=== PATIENT | female | born 1935 | race Caucasian/White ===

== ENCOUNTER 2017-04-06 07:26 | Emergency (ER) | payer OTHER, BC ==
[~2017-04-06] VITALS: Ht 167.6 cm; Wt 57.6 kg
[~2017-04-06 07:26] MED LIST: ADVAIR 500/501 DISK IH; AMOX TR-K CLV1 EAC4 PO; AMOXICILLIN500 M1 PO; ANTACID CHEWAB1 EACH PO; ANTI-DIARRHEAL2 M2 PO; CALCITRIOL0.25 MCG PO; CARAFATE100 MG/ML PO; CLARITIN-D 121 EACH PO; DICYCLOMINE HCL20 MG PO; ERGOCALCIF50000 UNIT PO; FEOSOL325 MG PO; FLONASE16 G1 BOTH NARES; IRON325 M1 PO; KEFLEX250 MG PO; LEVOXYL100 MCG PO; LIPITOR10 MG PO; METOPROLOL TART25 MG PO; MUCINEX DM ER1 EACH PO; NORVASC10 MG PO; PERCOCET 5/31 TABLET PO; PRINIVIL5 MG PO; PROTONIX40 MG PO; SORE THROAT LO1 EAC3 MM; SPIRIVA RESPIMAT4 GM IH; TOPROL XL25 MG PO; TYLENOL REGULA325 MG PO; Tums,OsCal PO; ZEASORB-AF70 G1 TP; ZOFRAN4 MG PO
[2017-04-06 08:09] LABS: ADD MIUA? YES; BILIRUBIN NEGATIVE; BLOOD MODERATE; COLOR YELLOW ((YELLOW)); GLUCOSE (STRIP) NEGATIVE; KETONES NEGATIVE; LEUKOCYTES LARGE; NITRITE NEGATIVE; PROTEIN (STRIP) >=500; SPECIFIC GRAVITY 1.014 (1.000-1.030); UROBILINOGEN 0.2 MG/DL (0.2-1.0)
[2017-04-06 08:22] LABS: EOSINOPHIL (%) 0.9 % (0-5); EOSINOPHIL COUNT 0.1 K/uL (0-0.3); HEMATOCRIT 33.6 % (36.0-46.0); IMMATURE GRANULOCYTE COUNT 0.1 K/uL; INSTRUMENT ABS NEUTROPHIL CT 5.9 K/uL; LYMPHOCYTE COUNT 1.1 K/uL (1.0-2.8); MCH 25.4 PG (29.0-34.0); MCHC 31.3 G/DL (30.0-36.0); MCV 81.4 FL (83-99); MEAN PLAT.VOLUME 9.1 uM^3 (9.5-12.4); MONOCYTE COUNT 0.6 K/uL (0-0.8); NEUTROPHIL (%) 76.2 % (45-76); NEUTROPHIL COUNT 5.9 K/uL (1.8-6.4); PLATELET COUNT 294 K/uL (156-360); RBC DIS.WIDTH-CV 14.4 % (11.8-14.6); RBC DIS.WIDTH-SD 42.8 % (39-53); RED BLOOD COUNT 4.13 M/uL (3.80-5.20); WHITE BLOOD COUNT 7.7 K/uL (4.1-10.2)
[2017-04-06 08:36] LABS: CHLORIDE 104 mEq/L (99-109); POTASSIUM 3.5 mEq/L (3.7-5.4); SODIUM 141 mEq/L (136-147)
[2017-04-06 08:38] LABS: GLUCOSE 87 mg/dL (70-99)
[2017-04-06 08:40] LABS: ANION GAP 12 MEQ/L (2-14); TOTAL BILIRUBIN 0.5 mg/dL (0.0-1.0)
[2017-04-06 08:42] LABS: ALKALINE PHOSPHATASE 67 IU/L (3-129); GFR ESTIMATE (CALCULATED) 39 mL/min/
[2017-04-06 08:43] LABS: UREA NITROGEN (BUN) 13 mg/dL (9-23)
[2017-04-06 08:49] LABS: UCUL ADDED? YES; WHITE BLOOD CELLS TNTC /HPF (0-5)
[2017-04-06] MEDS ORDERED: CIPRO500 MG PO (12:35)
[2017-04-06 14:08] VITALS: BP 171/77
== END 2017-04-06 14:14 | disposition home or self-care (01) ==
LOC: EME → EDBD 07:26 → EME 07:26
PROVIDERS: Emergency Medicine
DX: N39.0 Urinary tract infection, site not specified (principal); R53.1 Weakness; J44.9 Chronic obstructive pulmonary disease, unspecified; E78.5 Hyperlipidemia, unspecified; I10 Essential (primary) hypertension; I25.2 Old myocardial infarction; K21.9 Gastro-esophageal reflux disease without esophagitis; E03.9 Hypothyroidism, unspecified; Z87.440 Personal history of urinary (tract) infections; Z93.3 Colostomy status; F17.200 Nicotine dependence, unspecified, uncomplicated
CPT/HCPCS: 71010; 80053; 81003; 85025; 93005; 99281; 99284; G8987 GO CI; G8988 GO CH; J0696

== ENCOUNTER 2017-12-07 11:28 | Inpatient (IN) | payer OTHER, BC ==
[~2017-12-07] VITALS: Ht 167.6 cm; Wt 52.4 kg
[~2017-12-07 11:28] MED LIST changes: +CIPRO500 MG PO
[2017-12-07 11:42] LABS: BASOPHIL (%) 0.5 % (0-1); BASOPHIL COUNT 0.1 K/uL (0-0.1); EOSINOPHIL COUNT 0.1 K/uL (0-0.3); HEMATOCRIT 37.8 % (36.0-46.0); HEMOGLOBIN 12.2 G/DL (11.9-15.5); LYMPHOCYTE (%) 26.5 % (15-42); LYMPHOCYTE COUNT 3.1 K/uL (1.0-2.8); MCH 28.2 PG (29.0-34.0); MCHC 32.3 G/DL (30.0-36.0); MCV 87.5 FL (83-99); MONOCYTE (%) 5.3 % (3-12); MONOCYTE COUNT 0.6 K/uL (0-0.8); NEUTROPHIL (%) 65.7 % (45-76); NEUTROPHIL COUNT 7.6 K/uL (1.8-6.4); PLATELET COUNT 242 K/uL (156-360); RBC DIS.WIDTH-CV 14.6 % (11.8-14.6); RBC DIS.WIDTH-SD 47.2 % (39-53); RED BLOOD COUNT 4.32 M/uL (3.80-5.20); WHITE BLOOD COUNT 11.6 K/uL (4.1-10.2)
[2017-12-07 11:50] LABS: INTER. NORMALIZED RATIO 1.2
[2017-12-07 11:51] LABS: AMYLASE 103 IU/L (1-118); CHLORIDE 108 mEq/L (99-109); POTASSIUM 2.7 mEq/L (3.7-5.4); SODIUM 142 mEq/L (136-147)
[2017-12-07 11:53] LABS: GLUCOSE 152 mg/dL (70-99); PTT 26.6 SEC (25-37)
[2017-12-07 11:56] LABS: CREATININE 1.2 mg/dL (0.6-1.3); GFR ESTIMATE (CALCULATED) 46 mL/min/; SERUM ETHYL ALCOHOL < 10 mg/dL
[2017-12-07 11:57] LABS: UREA NITROGEN (BUN) 12 mg/dL (9-23)
[2017-12-07 11:59] LABS: LIPASE 25 U/L (1.0-51.0)
[2017-12-07 12:02] LABS: TROP-I INTERPRETATION NEGATIVE; TROPONIN-I < 0.01 ng/mL (0.0-0.30)
[2017-12-07 13:14] LABS: APPEARANCE SL.HAZY ((CLEAR)); BILIRUBIN NEGATIVE; BLOOD SMALL; COLOR YELLOW ((YELLOW)); GLUCOSE (STRIP) NEGATIVE; KETONES NEGATIVE; LEUKOCYTES LARGE; NITRITE NEGATIVE; PROTEIN (STRIP) 100; SPECIFIC GRAVITY 1.009 (1.000-1.030); UROBILINOGEN 0.2 MG/DL (0.2-1.0)
[2017-12-07 13:22] LABS: AMPHETAMINE NEGATIVE (500 ng/mL); BARBITURATES NEGATIVE (200 ng/mL); BENZODIAZEPINES NEGATIVE (150 ng/mL); BUPRENORPHINE NEGATIVE (10 ng/mL); COCAINE NEGATIVE (150 ng/mL); METHADONE NEGATIVE (200 ng/mL); METHAMPHETAMINE NEGATIVE (500 ng/mL); OPIATES (MORPHINE) NEGATIVE (100 ng/mL); OXYCODONE NEGATIVE (100 ng/mL); PHENCYCLIDINE NEGATIVE (25 ng/mL); PROPOXYPHENE NEGATIVE (300 ng/mL); THC CANNABINOIDS NEGATIVE (50 ng/mL); TRICYCLIC ANTIDEPRESSANTS NEGATIVE (300 ng/mL)
[2017-12-07 13:30] LABS: BACTERIA 3+ /HPF; EPITHELIAL CELLS RARE /HPF; MUCUS NONE SEEN /LPF; RED BLOOD CELLS 0-5 /HPF (0-5); UCUL ADDED? YES; WHITE BLOOD CELLS TNTC /HPF (0-5)
[2017-12-07] MEDS ORDERED: ZOFRAN4 MG PO (13:50)
[2017-12-07] MEDS ORDERED: IMODIUM A-D2 M2 PO (13:52)
[2017-12-07] MEDS ORDERED: ROCALTROL0.25 MCG PO (13:52)
[2017-12-07] MEDS ORDERED: ERGOCALCIF50000 UNIT PO (13:53)
[2017-12-07 20:11] VITALS: BP 157/70
[2017-12-08 00:24] VITALS: BP 149/69
[2017-12-08 01:24] LABS: POTASSIUM 3.5 mEq/L (3.7-5.4)
[2017-12-08 04:02] VITALS: BP 150/70
[2017-12-08 12:43] VITALS: BP 150/67
[2017-12-08 16:57] VITALS: BP 148/69
[2017-12-08 20:54] VITALS: BP 174/77
[2017-12-08 23:49] VITALS: BP 153/70
[2017-12-09 05:47] LABS: FASTING STATUS NONFASTING
[2017-12-09 06:13] LABS: HDL CHOLESTEROL 46 MG/DL (Desirable>=50); LDL CHOLESTEROL 64 mg/dL (Desirable<100); NON-HDL CHOLESTEROL 80 mg/dL (Desirable<160); TOTAL CHOLESTEROL 126 mg/dL (Desirable<200); TRIGLYCERIDES 79 MG/DL (Normal: <150)
[2017-12-09 08:06] VITALS: BP 136/70
[2017-12-09 12:22] VITALS: BP 139/65
[2017-12-09 16:45] VITALS: BP 137/57
[2017-12-09 20:24] VITALS: BP 136/56
[2017-12-09 23:50] VITALS: BP 168/59
[2017-12-10 07:31] VITALS: BP 166/80
[2017-12-10] MEDS ORDERED: CEFEPIME HCL2 GM IV (09:47)
[2017-12-10] MEDS ORDERED: ASPIR-LOW81 MG PO (10:07)
[2017-12-10 15:11] VITALS: BP 159/83
[2017-12-10 23:39] VITALS: BP 156/18
[2017-12-11 07:32] VITALS: BP 148/67
[2017-12-11 16:06] VITALS: BP 157/69
[2017-12-11 23:33] VITALS: BP 144/65
[2017-12-12 07:52] VITALS: BP 147/69
[2017-12-12 16:00] VITALS: BP 165/69
[2017-12-13 04:27] VITALS: BP 150/65
[2017-12-13 07:59] VITALS: BP 158/69
[2017-12-13 17:18] VITALS: BP 140/63
[2017-12-14 06:26] LABS: HEMATOCRIT 34.3 % (36.0-46.0); HEMOGLOBIN 10.5 G/DL (11.9-15.5); MCH 27.6 PG (29.0-34.0); MCHC 30.6 G/DL (30.0-36.0); PLATELET COUNT 188 K/uL (156-360); RBC DIS.WIDTH-CV 14.6 % (11.8-14.6); RBC DIS.WIDTH-SD 48.8 % (39-53); RED BLOOD COUNT 3.81 M/uL (3.80-5.20); WHITE BLOOD COUNT 8.7 K/uL (4.1-10.2)
[2017-12-14 06:50] LABS: ALKALINE PHOSPHATASE 69 IU/L (3-129); ALT (GPT) 11 IU/L (3-49); AST (GOT) 14 IU/L (2-34); CHLORIDE 113 MEQ/L (99-109); CREATININE 1.6 MG/DL (0.6-1.3); GFR ESTIMATE (CALCULATED) 33 mL/min/; GLUCOSE 84 mg/dL (70-99); SODIUM 140 MEQ/L (136-147); TOTAL BILIRUBIN 0.4 MG/DL (0.0-1.0); TOTAL PROTEIN 5.8 G/DL (6.4-8.3)
[2017-12-14 06:58] LABS: POTASSIUM 4.5 MEQ/L (3.7-5.4); UREA NITROGEN (BUN) 34 mg/dL (9-23)
[2017-12-14 08:00] VITALS: BP 143/61
[2017-12-14] MEDS ORDERED: CEFTIN250 MG/5 M PO (13:11)
== END 2017-12-14 15:20 | DRG 69 ==
LOC: EME 11:28 → EDOF 13:00 → 5SOUTH 13:00 → ENRESERV 13:23 → 5SOUTH 19:44 → ENPENDDIS 12-14 13:12 → 5SOUTH 12-14 15:20
PROVIDERS: Emergency Medicine; Family Medicine; Internal Medicine
DX: G45.9 Transient cerebral ischemic attack, unspecified (principal); N39.0 Urinary tract infection, site not specified; B96.5 Pseudomonas (aeruginosa) (mallei) (pseudomallei) as the cause of diseases classified elsewhere; J01.30 Acute sphenoidal sinusitis, unspecified; F03.91 Unspecified dementia, unspecified severity, with behavioral disturbance; R26.9 Unspecified abnormalities of gait and mobility; R53.1 Weakness; R47.01 Aphasia; E87.6 Hypokalemia; F41.9 Anxiety disorder, unspecified; J44.9 Chronic obstructive pulmonary disease, unspecified; D64.9 Anemia, unspecified; I25.10 Atherosclerotic heart disease of native coronary artery without angina pectoris; I13.0 Hypertensive heart and chronic kidney disease with heart failure and stage 1 through stage 4 chronic kidney disease, or unspecified chronic kidney disease; I50.9 Heart failure, unspecified; N18.3 Chronic kidney disease, stage 3 (moderate); I48.91 Unspecified atrial fibrillation; K21.9 Gastro-esophageal reflux disease without esophagitis; E78.5 Hyperlipidemia, unspecified; M81.0 Age-related osteoporosis without current pathological fracture; E03.9 Hypothyroidism, unspecified; I25.2 Old myocardial infarction; F17.210 Nicotine dependence, cigarettes, uncomplicated; Z91.81 History of falling; H54.61 Unqualified visual loss, right eye, normal vision left eye; Z93.3 Colostomy status; Z80.3 Family history of malignant neoplasm of breast
CPT/HCPCS: 70450; 70551; 71045; 80048; 80053; 80061; 81003; 82150; 83690; 84132; 84484; 85025; 85027; 85610; 85730; 86850; 86870; 86900; 86901; 86905; 86920; 87077; 87086; 87186; 93005; 95819; 99281; 99285; G0480; J0692; J0696; J2405